=== PATIENT | male | born 1955 | race Caucasian/White ===

== ENCOUNTER 2018-04-07 16:01 | Emergency (ER) | payer OTHER ==
[~2018-04-07] VITALS: Ht 185.4 cm; Wt 127.4 kg
[2018-04-07 16:20] VITALS: BP 140/99
== END 2018-04-07 17:20 | disposition home or self-care (01) ==
LOC: ED 17:00
DX: B02.9 Zoster without complications (principal); I10 Essential (primary) hypertension
CPT/HCPCS: 99283